=== PATIENT | male | born 1975 | race Caucasian/White ===

== ENCOUNTER 2018-12-14 10:39 | Emergency (ER) | payer OTHER ==
[~2018-12-14] VITALS: Ht 177.8 cm; Wt 100.0 kg
[~2018-12-14 10:39] MED LIST: CLIN150C8 PO; NO HOME MEDS
[2018-12-14 11:14] VITALS: BP 134/90
[2018-12-14] MEDS ORDERED: LIDOcaine 1% w/epiNEPHrine 1:200,000 30ml vial IM ONE (12:20)
[2018-12-14] MEDS ORDERED: SULF1TAB49 PO (12:32)
== END 2018-12-14 12:44 | disposition home or self-care (01) ==
LOC: ER 10:40
DX: L02.213 Cutaneous abscess of chest wall (principal); R51 Headache; F17.200 Nicotine dependence, unspecified, uncomplicated; Z56.0 Unemployment, unspecified; Z79.899 Other long term (current) drug therapy
CPT/HCPCS: 10060; 99283; J3490